=== PATIENT | female | born 1990 | race African-American/Black ===

== ENCOUNTER 2024-08-05 10:48 | Day surgery (SDC) | payer MEDICAID ==
[2024-08-05] MEDS ORDERED: hydrALAZINE 20 MG/ML VIAL SLOW IVP PRN (11:28)
[2024-08-05 13:09] LABS: Bilirubin Neg (Negative); Blood, Urine Negative (Negative); Glucose, Urine (Dipstick) Normal (Negative); Ketone, Urine Negative (Negative); Leukocyte Negative (Negative); Nitrite Negative (Negative); Protein, Urine (Dipstick) Negative (Neg-Trace); Specific Gravity, Urine 1.015 (1.005-1.030); Urobilinogen Normal mg/dL (Less than 2)
[2024-08-05 13:23] LABS: Clarity Cloudy (Clear)
[2024-08-05 13:24] LABS: Bacteria/HPF Rare-Few HPF (None Seen); CAUTI Indications for Culture Pregnancy; RBC/HPF None Seen HPF (0-3); WBC/HPF None Seen HPF (0-3)
[2024-08-05 13:25] LABS: Urine Culture Reflex No No; Urine Culture Reflex Yes Yes
[2024-08-05 13:27] LABS: HIV (1/2) Antibody/Antigen Non-Reactive (NonReactive); HIV 1/2 INDEX 0.15 S/CO (<1.00)
[2024-08-05 14:55] LABS: Syphilis Antibody INDETERMINATE (Nonreactive); Syphilis Antibody Index 10.76 S/CO (<1.00 Non-Reactive)
[2024-08-05 15:04] LABS: Syphilis Titer Non-Reactive Titer (Negative)
[2024-08-05 15:36] LABS: FFN Internal QC Analyzer PASS (PASS); FFN Internal QC Cassette PASS (PASS); Fetal Fibronectin Negative (Negative)
[2024-08-05 16:31] VITALS: BMI 27.7
[2024-08-06 05:14] LABS: Chlamydia by PCR, Vaginal Swab Not Detected (NotDetected); GC by PCR, Vaginal Swab Not Detected (NotDetected)
== END 2024-08-05 17:14 | disposition home or self-care (01) ==
LOC: CSHLD/OP 10:48
PROVIDERS: ATTEND Family Medicine
DX: O47.02 False labor before 37 completed weeks of gestation, second trimester (principal); O30.042 Twin pregnancy, dichorionic/diamniotic, second trimester; O99.343 Other mental disorders complicating pregnancy, third trimester; F32.A Depression, unspecified; F41.9 Anxiety disorder, unspecified; F43.10 Post-traumatic stress disorder, unspecified; O09.211 Supervision of pregnancy with history of pre-term labor, first trimester; O98.312 Other infections with a predominantly sexual mode of transmission complicating pregnancy, second trimester; O98.112 Syphilis complicating pregnancy, second trimester; O23.42 Unspecified infection of urinary tract in pregnancy, second trimester; Z79.899 Other long term (current) drug therapy; Z79.82 Long term (current) use of aspirin; Z88.0 Allergy status to penicillin; Z3A.26 26 weeks gestation of pregnancy
CPT/HCPCS: 76810; 76815; 76817; 81001; 82731; 86593; 86780; 87086; 87389; 87480; 87491; 87510; 87591; 87660; 99285

== ENCOUNTER 2024-08-10 21:50 | Observation (INO) | payer OTHER, MEDICAID ==
[2024-08-10 22:21] VITALS: BMI 28.7
[2024-08-10] MEDS ORDERED: hydrALAZINE 20 MG/ML VIAL SLOW IVP PRN ×2 (22:43→23:17)
[2024-08-10] MEDS ORDERED: Misoprostol 200 MCG TAB PR PRN (23:17)
[2024-08-10] MEDS ORDERED: Methylergonovine 0.2 MG/ML VIAL IM PRN (23:17)
[2024-08-10] MEDS ORDERED: Tranexamic Acid 1,000 MG/10 ML VIAL IVP PRN (23:17)
[2024-08-10] MEDS ORDERED: Carboprost 250 MCG/ML AMP IM PRN (23:17)
[2024-08-10] MEDS ORDERED: Promethazine HCl 25 MG/ML VIAL IM PRN (23:17)
[2024-08-10] MEDS: fentaNYL 50 mcg/mL 1 mL Vial ONE (23:22)
[2024-08-10] MEDS: Betamet Acet/Betamet Na Ph 30 MG/5 ML VIAL IM SCH (23:24)
[2024-08-10] MEDS ORDERED: fentaNYL 50 mcg/mL 1 mL Vial SLOW IVP SCH (23:30)
[2024-08-10] MEDS ORDERED: Magnesium Sulfate 2 GM in Sodium Chloride 0.9% 100 ML IVPB SCH (23:30)
[2024-08-10] MEDS ORDERED: Magnesium Sulfate 6 GM in Sodium Chloride 0.9% 250 ML 250 ML IVPB SCH (23:30)
[2024-08-10] MEDS ORDERED: Lactated Ringer's 1,000 ML IV SCH (23:30)
[2024-08-10] MEDS ORDERED: Oxytocin 30 units/NS 500 ML 500 ML IV SCH (23:30)
[2024-08-10] MEDS ORDERED: Ondansetron PF 4 MG/2 ML Vial IVP SCH (23:45)
[2024-08-11 00:32] LABS: Amphetamine Not Detected (NotDetected); Barbiturates Screen Not Detected (NotDetected); Benzodiazepine Screen Not Detected (NotDetected); Cocaine Metabolite Screen Not Detected (NotDetected); Methadone Not Detected (NotDetected); Methamphetamine Not Detected (NotDetected); Opiate Screen Not Detected (NotDetected); Oxycodone Screen Not Detected (NotDetected); Phencyclidine (PCP) Not Detected (NotDetected); THC/Cannabinoid Screen Not Detected (NotDetected); Tricyclic Screen Not Detected (NotDetected)
[2024-08-11 00:33] LABS: Bilirubin Neg (Negative); Blood, Urine Negative (Negative); Clarity Clear (Clear); Glucose, Urine (Dipstick) Normal (Negative); Ketone, Urine 150 mg/dL (Negative); Leukocyte Negative (Negative); Nitrite Negative (Negative); Protein, Urine (Dipstick) Negative (Neg-Trace); Urobilinogen Normal mg/dL (Less than 2)
[2024-08-11 00:44] LABS: Bacteria/HPF 1+ HPF (None Seen); CAUTI Indications for Culture Pregnancy; RBC/HPF 0-3 HPF (0-3); Squamous Epithelial 0-3 HPF (0-3); WBC/HPF 0-3 HPF (0-3)
[2024-08-11] MEDS: Magnesium Sulfate 20 gm/500 ml 20 GM/500 ML BAG IVPB SCH (00:44)
[2024-08-11] MEDS: Penicillin G Potassium 5 MILL.UNITS in Sodium Chloride 0.9% 100 ML IVPB SCH (00:44)
[2024-08-11 00:45] LABS: Urine Culture Reflex No No; Urine Culture Reflex Yes Yes
[2024-08-11 00:47] LABS: Hemoglobin 10.6 g/dL (12.0-15.5); Mean Corpuscular HGB CONC 34.2 g/dL (32.0-36.0); Mean Corpuscular Hemoglobin 30.6 pg (27.0-33.0); Mean Corpuscular Volume 89.6 fL (81.6-98.3); Mean Platelet Volume 9.5 fL (7.4-10.4); Platelet Count 197 10x3/uL (150-450); RBC Distribution Width 13.2 % (11.5-14.5); Red Blood Cell (RBC) Count 3.46 10x6/uL (3.90-5.03); White Blood Cell (WBC) Count 14.7 10x3/uL (3.5-10.5)
[2024-08-11] MEDS ORDERED: Morphine 4 MG/ML VIAL SLOW IVP SCH (01:00)
[2024-08-11 01:14] LABS: Syphilis Antibody INDETERMINATE (Nonreactive); Syphilis Titer Non-Reactive Titer (Negative)
[2024-08-11 01:18] LABS: HBsAg Index 0.25 S/CO (0-0.99); Hep B Surf Ag - L&D Non-Reactive S/CO (NonReactive)
[2024-08-11] MEDS: Morphine 4 MG/ML VIAL IM SCH (01:48)
[2024-08-11] MEDS: Promethazine HCl 25 MG/ML VIAL IM PRN (01:48)
[2024-08-11] MEDS: Penicillin G 2.5 MILL.units 2.5 MILL.UNITS in Premix 1 BAG IVPB SCH (03:48)
[2024-08-11] MEDS: Acetaminophen 500 MG TAB PO PRN (10:14)
[2024-08-11] MEDS: Ondansetron PF 4 MG/2 ML Vial IVP PRN (11:11)
[2024-08-11] MEDS: Famotidine 20 MG TAB PO SCH (13:04)
[2024-08-11] MEDS: Diphenoxylate HCl/Atropine Tablet PO PRN (15:09)
[2024-08-11] MEDS: Lactated Ringer's 1,000 ML IV SCH (16:00)
[2024-08-11 19:02] LABS: Chlamydia by PCR, Vaginal Swab Not Detected (NotDetected); GC by PCR, Vaginal Swab Not Detected (NotDetected)
[2024-08-11] MEDS: Betamet Acet/Betamet Na Ph 30 MG/5 ML VIAL ONE (19:20)
[2024-08-11] MEDS: Magnesium Sulfate 20 gm/500 ml 20 GM/500 ML BAG ONE (19:21)
[2024-08-11] MEDS ORDERED: Famotidine 40 MG/5 ML Oral Suspension PO SCH (21:00)
[2024-08-11] MEDS ORDERED: diphenhydrAMINE 50 MG CAP PO SCH (21:30)
[2024-08-12] MEDS: diphenhydrAMINE 50 MG CAP PO SCH (01:41)
[2024-08-12] MEDS: Bicillin LA 2.4 MILL.UNITS/4 ML SYRINGE IM SCH (02:25)
[2024-08-12 10:50] VITALS: BP 117/63; TEMP 98.4
== END 2024-08-12 15:20 | disposition home or self-care (01) ==
LOC: CSHLD/OP 21:50 → CSHLD 23:17 → CSHANTE 08-12 03:00
PROVIDERS: ADMIT Student in an Organized Health Care Education/Training Program; ATTEND Student in an Organized Health Care Education/Training Program
DX: O47.02 False labor before 37 completed weeks of gestation, second trimester (principal); O98.112 Syphilis complicating pregnancy, second trimester; A53.0 Latent syphilis, unspecified as early or late; O09.212 Supervision of pregnancy with history of pre-term labor, second trimester; O30.092 Twin pregnancy, unable to determine number of placenta and number of amniotic sacs, second trimester; O99.342 Other mental disorders complicating pregnancy, second trimester; F41.9 Anxiety disorder, unspecified; F32.A Depression, unspecified; F43.10 Post-traumatic stress disorder, unspecified; Z3A.27 27 weeks gestation of pregnancy
CPT/HCPCS: 36415; 36416; 76815; 76817; 80306; 81001; 85027; 86593; 86780; 86850; 86900; 86901; 87070; 87077; 87086; 87186; 87205; 87340; 87480; 87491; 87510; 87591; 87660; 96372; 96374; 96375; 96376; G0378; J0561; J0702; J2272; J2405; J2540; J2550; J3010; J3475; J7120

== ENCOUNTER 2024-08-18 09:01 | Day surgery (SDC) | payer MEDICAID ==
[2024-08-18 09:51] VITALS: BMI 28.7
[2024-08-18] MEDS ORDERED: hydrALAZINE 20 MG/ML VIAL SLOW IVP PRN (10:08)
[2024-08-18] MEDS: diphenhydrAMINE 50 MG/ML VIAL IVP SCH (10:38)
[2024-08-18] MEDS: Bicillin LA 2.4 MILL.UNITS/4 ML SYRINGE IM SCH (10:53)
== END 2024-08-18 12:44 | disposition home or self-care (01) ==
LOC: CSHLD/OP 09:01
PROVIDERS: ATTEND Family Medicine
DX: O47.03 False labor before 37 completed weeks of gestation, third trimester (principal); O30.003 Twin pregnancy, unspecified number of placenta and unspecified number of amniotic sacs, third trimester; O99.343 Other mental disorders complicating pregnancy, third trimester; F32.9 Major depressive disorder, single episode, unspecified; F41.9 Anxiety disorder, unspecified; F43.10 Post-traumatic stress disorder, unspecified; O98.113 Syphilis complicating pregnancy, third trimester; O23.43 Unspecified infection of urinary tract in pregnancy, third trimester; O09.43 Supervision of pregnancy with grand multiparity, third trimester; Z87.59 Personal history of other complications of pregnancy, childbirth and the puerperium; Z3A.28 28 weeks gestation of pregnancy; Z88.0 Allergy status to penicillin; Z88.1 Allergy status to other antibiotic agents; Z79.82 Long term (current) use of aspirin; Z79.899 Other long term (current) drug therapy
CPT/HCPCS: 96360; 96372; 96375; 99282; J0561; J1200

== ENCOUNTER 2024-08-25 09:07 | Day surgery (SDC) | payer MEDICAID ==
[2024-08-25 09:27] VITALS: BMI 28.7
[2024-08-25] MEDS: diphenhydrAMINE 25 MG CAP PO SCH (10:08)
[2024-08-25] MEDS: Bicillin LA 2.4 MILL.UNITS/4 ML SYRINGE IM SCH (10:38)
== END 2024-08-25 15:12 | disposition home or self-care (01) ==
LOC: CSHLD/OP 09:07
PROVIDERS: ATTEND Family Medicine
DX: O98.113 Syphilis complicating pregnancy, third trimester (principal); O30.043 Twin pregnancy, dichorionic/diamniotic, third trimester; O99.343 Other mental disorders complicating pregnancy, third trimester; F32.9 Major depressive disorder, single episode, unspecified; F43.10 Post-traumatic stress disorder, unspecified; F41.9 Anxiety disorder, unspecified; O23.43 Unspecified infection of urinary tract in pregnancy, third trimester; O26.43 Herpes gestationis, third trimester; O09.213 Supervision of pregnancy with history of pre-term labor, third trimester; O47.03 False labor before 37 completed weeks of gestation, third trimester; O99.313 Alcohol use complicating pregnancy, third trimester; F10.90 Alcohol use, unspecified, uncomplicated; O99.323 Drug use complicating pregnancy, third trimester; F12.90 Cannabis use, unspecified, uncomplicated; Z79.82 Long term (current) use of aspirin; Z79.899 Other long term (current) drug therapy; Z88.0 Allergy status to penicillin; Z88.1 Allergy status to other antibiotic agents; Z3A.29 29 weeks gestation of pregnancy
CPT/HCPCS: 96372; 99283; J0561

== ENCOUNTER 2024-09-17 15:15 | Inpatient (IN) | payer OTHER, MEDICAID ==
[2024-09-17 15:34] VITALS: BMI 29.8
[2024-09-17] MEDS ORDERED: hydrALAZINE 20 MG/ML VIAL SLOW IVP PRN (16:12)
[2024-09-17] MEDS: Betamet Acet/Betamet Na Ph 30 MG/5 ML VIAL IM SCH (17:05)
[2024-09-17 17:52] LABS: Bilirubin Neg (Negative); Blood, Urine Negative (Negative); Clarity Clear (Clear); Glucose, Urine (Dipstick) Normal (Negative); Ketone, Urine 15 mg/dL (Negative); Leukocyte Negative (Negative); Nitrite Negative (Negative); Protein, Urine (Dipstick) 15 mg/dl (Neg-Trace)
[2024-09-17] MEDS ORDERED: NIFEdipine XL 30 MG ER.TAB PO ONE (19:09)
[2024-09-17] MEDS ORDERED: Diphenoxylate HCl/Atropine Tablet PO PRN ×2 (19:12)
[2024-09-17] MEDS ORDERED: Methylergonovine 0.2 MG/ML VIAL IM PRN (19:12)
[2024-09-17] MEDS ORDERED: Acetaminophen 500 MG TAB PO PRN (19:12)
[2024-09-17] MEDS ORDERED: Promethazine HCl 25 MG/ML VIAL IM PRN ×2 (19:12→22:51)
[2024-09-17] MEDS ORDERED: Ondansetron PF 4 MG/2 ML Vial IVP PRN ×2 (19:12→22:51)
[2024-09-17] MEDS ORDERED: Misoprostol 200 MCG TAB PR PRN (19:12)
[2024-09-17] MEDS ORDERED: Carboprost 250 MCG/ML AMP IM PRN (19:12)
[2024-09-17] MEDS: NIFEdipine 10 MG CAP ONE (19:15)
[2024-09-17 19:29] LABS: Hematocrit 34.2 % (34.9-44.5); Hemoglobin 11.2 g/dL (12.0-15.5); Mean Corpuscular HGB CONC 32.7 g/dL (32.0-36.0); Mean Corpuscular Hemoglobin 28.6 pg (27.0-33.0); Mean Corpuscular Volume 87.2 fL (81.6-98.3); Mean Platelet Volume 10.3 fL (7.4-10.4); Platelet Count 271 10x3/uL (150-450); RBC Distribution Width 13.5 % (11.5-14.5); Red Blood Cell (RBC) Count 3.92 10x6/uL (3.90-5.03); White Blood Cell (WBC) Count 14.6 10x3/uL (3.5-10.5)
[2024-09-17] MEDS: NIFEdipine 10 MG CAP PO SCH ×2 (19:59→20:31)
[2024-09-17] MEDS ORDERED: Lidocaine 1% (PF) 30 ML VIAL SC PRN (20:00)
[2024-09-17] MEDS ORDERED: Ibuprofen 800 MG TAB PO PRN (20:00)
[2024-09-17 20:02] LABS: CAUTI Indications for Culture Pregnancy
[2024-09-17 20:03] LABS: Bacteria/HPF 1+ HPF (None Seen)
[2024-09-17 20:04] LABS: Urine Culture Reflex Yes Yes
[2024-09-17 20:06] LABS: HBsAg Index 0.22 S/CO (0-0.99); Hep B Surf Ag - L&D Non-Reactive S/CO (NonReactive)
[2024-09-17] MEDS: diphenhydrAMINE 25 MG CAP PO PRN (20:31)
[2024-09-17] MEDS: Penicillin G Potassium 5 MILL.UNITS in Sodium Chloride 0.9% 100 ML IVPB SCH (20:51)
[2024-09-17] MEDS: fentaNYL 50 mcg/mL 1 mL Vial SLOW IVP SCH (20:51)
[2024-09-17] MEDS ORDERED: Magnesium Sulfate 4 GM in Sodium Chloride 0.9% 250 ML 250 ML IVPB SCH (21:00)
[2024-09-17 21:03] LABS: Amphetamine Not Detected (NotDetected); Barbiturates Screen Not Detected (NotDetected); Benzodiazepine Screen Not Detected (NotDetected); Cocaine Metabolite Screen Not Detected (NotDetected); Methadone Not Detected (NotDetected); Methamphetamine Not Detected (NotDetected); Opiate Screen Not Detected (NotDetected); Oxycodone Screen Not Detected (NotDetected); Phencyclidine (PCP) Not Detected (NotDetected); THC/Cannabinoid Screen Not Detected (NotDetected); Tricyclic Screen Not Detected (NotDetected)
[2024-09-17] MEDS ORDERED: Calcium Gluc 4.6 MEQ/10 ML (100 MG/ML) SLOW IVP PRN (21:03)
[2024-09-17] MEDS ORDERED: Lorazepam 2 MG/ML VIAL SLOW IVP PRN (21:03)
[2024-09-17] MEDS: Magnesium Sulfate 20 gm/500 ml 20 GM/500 ML BAG IVPB SCH (21:24)
[2024-09-17 21:35] LABS: HIV (1/2) Antibody/Antigen Non-Reactive (NonReactive); HIV 1/2 INDEX 0.16 S/CO (<1.00)
[2024-09-17] MEDS: fentaNYL/Ropivacaine Epidural 100 ML ONE (22:43)
[2024-09-17 22:45] LABS: Syphilis Antibody Index 11.84 S/CO (<1.00 Non-Reactive)
[2024-09-17] MEDS ORDERED: ePHEDrine Sulfate 50 MG/10 ML VIAL SLOW IVP PRN (22:51)
[2024-09-17] MEDS ORDERED: Lactated Ringer's 500 ML IV PRN (22:51)
[2024-09-17] MEDS ORDERED: diphenhydrAMINE 50 MG/ML VIAL IVP PRN (22:51)
[2024-09-17] MEDS ORDERED: Naloxone HCl 0.4 mg/ml Vial IVP PRN ×2 (22:51)
[2024-09-17] MEDS ORDERED: Moisturizing Cream (Eucerin) 113 GM JAR TOP PRN (22:51)
[2024-09-17] MEDS ORDERED: Communication Order-Pharmacy FS SCH (23:00)
[2024-09-17] MEDS ORDERED: NIFEdipine 10 MG CAP PO PRN (23:00)
[2024-09-17] MEDS: Sertraline 100 MG TAB PO SCH (23:05)
[2024-09-17 23:51] LABS: Syphilis Antibody INDETERMINATE (Nonreactive); Syphilis Titer Non-Reactive Titer (Negative)
[2024-09-18] MEDS: Penicillin G 2.5 MILL.units 2.5 MILL.UNITS in Premix 1 BAG IVPB SCH (01:20)
[2024-09-18] MEDS: Lactated Ringer's 1,000 ML IV SCH (02:02)
[2024-09-18] MEDS ORDERED: Bupivacaine/Epinephrine 0.25% 30 ML VIAL ONE (08:00)
[2024-09-18] MEDS: Acetaminophen 500 MG TAB PO SCH (09:25)
[2024-09-18] MEDS: fentaNYL 2 mcg/Ropivacaine 0.2% Epidural 100 ML CADD EPIDURAL SCH (11:00)
[2024-09-18 17:54] LABS: #Basophils 0.02 10x3/uL (0.0-0.2); #Eosinophils 0.01 10x3/uL (0.0-0.5); #Monocytes 1.01 10x3/uL (0.0-1.1); #Neutrophils 14.47 10x3/uL (1.5-8.4); %Basophils 0.1 % (0.0-2.0); %Eosinophils 0.1 % (0.0-6.0); %Lymphocytes 9.3 % (18.0-47.0); %Monocytes 5.8 % (0.0-10.0); %Neutrophils 82.8 % (40.0-75.0); Hematocrit 30.9 % (34.9-44.5); Hemoglobin 10.1 g/dL (12.0-15.5); Mean Corpuscular HGB CONC 32.7 g/dL (32.0-36.0); Mean Corpuscular Hemoglobin 28.3 pg (27.0-33.0); Mean Corpuscular Volume 86.6 fL (81.6-98.3); Mean Platelet Volume 10.2 fL (7.4-10.4); Platelet Count 257 10x3/uL (150-450); RBC Distribution Width 13.5 % (11.5-14.5); Red Blood Cell (RBC) Count 3.57 10x6/uL (3.90-5.03); White Blood Cell (WBC) Count 17.5 10x3/uL (3.5-10.5)
[2024-09-18 18:01] LABS: ALT (SGPT) 9 U/L (8-55); AST (SGOT) 19 U/L (5-34); Albumin 2.4 g/dL (3.5-5.0); Alkaline Phosphatase 74 U/L (40-110); Anion Gap 15 mmol/L (10-20); BUN (Urea Nitrogen) 6 mg/dL (7.0-18.7); Bilirubin, Total 0.7 mg/dL (0.2-1.2); Calc. Creatinine Clearance 142 mL/min (70-130); Calcium 7.4 mg/dL (7.8-10.44); Carbon Dioxide 17 mmol/L (22-29); Chloride 104 mmol/L (98-107); Estimated GFR 107; Globulin 3.8 g/dL (2.4-3.5); Glucose 139 mg/dL (70-105); Protein, Total 6.2 g/dL (6.0-8.3); Sodium 132 mmol/L (136-145)
[2024-09-18 18:12] LABS: Creatinine, Urine 32.27 mg/dL (47-110); Protein, Urine Random Quant Less than 10 mg/dL (1-14)
[2024-09-18] MEDS: NIFEdipine 10 MG CAP PO PRN (20:12)
[2024-09-18] MEDS: Acetaminophen 325 MG TAB PO PRN (21:31)
[2024-09-18] MEDS: fentaNYL/Ropivacaine Epidural 100 ML ONE (23:03)
[2024-09-19] MEDS: Cyclobenzaprine 10 MG TAB PO SCH (00:14)
[2024-09-19] MEDS ORDERED: Bicitra 30 ML UDCUP PO PRN (06:00)
[2024-09-19] MEDS ORDERED: Azithromycin 500 MG in Sodium Chloride 0.9% 250 ML 250 ML IVPB SCH (06:00)
[2024-09-19] MEDS ORDERED: Famotidine/PF 20 mg/2ml Vial SLOW IVP PRN (06:00)
[2024-09-19] MEDS ORDERED: CEFAZOLIN 2 GM in Sodium Chloride 0.9% 100 ML IVPB SCH (06:00)
[2024-09-19] MEDS: fentaNYL/Ropivacaine Epidural 100 ML ONE (06:04)
[2024-09-19] MEDS ORDERED: diphenhydrAMINE 50 MG/ML VIAL IVP PRN ×2 (06:20→10:41)
[2024-09-19] MEDS ORDERED: ePHEDrine Sulfate 50 MG/10 ML VIAL SLOW IVP PRN (06:20)
[2024-09-19] MEDS ORDERED: Lactated Ringer's 500 ML IV PRN (06:20)
[2024-09-19] MEDS ORDERED: Naloxone HCl 0.4 mg/ml Vial IVP PRN ×4 (06:20→10:41)
[2024-09-19] MEDS ORDERED: Moisturizing Cream (Eucerin) 113 GM JAR TOP PRN ×2 (06:20→10:41)
[2024-09-19] MEDS ORDERED: Promethazine HCl 25 MG/ML VIAL IM PRN ×2 (06:20→10:41)
[2024-09-19] MEDS ORDERED: Ondansetron PF 4 MG/2 ML Vial IVP PRN ×4 (06:20→10:41)
[2024-09-19] MEDS ORDERED: Acetaminophen 325 MG TAB PO PRN ×2 (06:20→08:57)
[2024-09-19] MEDS ORDERED: Communication Order-Pharmacy FS SCH ×2 (06:30→10:45)
[2024-09-19] MEDS ORDERED: fentaNYL 2 mcg/Ropivacaine 0.2% Epidural 100 ML CADD EPIDURAL SCH (06:30)
[2024-09-19 08:39] LABS: Analyzer IN Cardio CS NICU; RapidComm Collect By OR NURSE
[2024-09-19 08:40] LABS: Analyzer IN Cardio CS NICU; RapidComm Collect By OR NURSE
[2024-09-19 08:49] LABS: Analyzer IN Cardio CS NICU; RapidComm Collect By OR NURES; pH (Cord, venous) 7.277 (7.250-7.350)
[2024-09-19] MEDS ORDERED: Lanolin Ointment 7 GM TUBE TOP PRN (08:57)
[2024-09-19] MEDS ORDERED: Misoprostol 200 MCG TAB PR PRN (08:57)
[2024-09-19] MEDS ORDERED: hydrALAZINE 20 MG/ML VIAL SLOW IVP PRN (08:57)
[2024-09-19] MEDS ORDERED: Bisacodyl 10 MG SUPP PR PRN (08:57)
[2024-09-19] MEDS ORDERED: Boostrix 0.5 ML (Tdap) VIAL (>/=7 yrs of age) IM ONE (08:57)
[2024-09-19] MEDS ORDERED: Methylergonovine 0.2 MG/ML VIAL IM PRN (08:57)
[2024-09-19] MEDS ORDERED: Oxytocin 30 units/NS 500 ML 500 ML IV SCH (09:00)
[2024-09-19] MEDS: Tranexamic Acid 1,000 MG/10 ML VIAL IVP PRN (09:16)
[2024-09-19 10:01] LABS: D-Dimer Test 5.47 mcg/mL (0.19-0.50); PTT 23.6 sec (22.0-33.0); Prothrombin Time 10.4 sec (9.5-12.1)
[2024-09-19] MEDS ORDERED: fentaNYL 50 mcg/mL 1 mL Vial SLOW IVP PRN (10:41)
[2024-09-19] MEDS ORDERED: Naloxone HCl 0.4 mg/ml Vial IV PRN (10:41)
[2024-09-19] MEDS ORDERED: Meperidine HCl/PF 25 MG (1 mL) VIAL SLOW IVP PRN (10:41)
[2024-09-19] MEDS ORDERED: Ketorolac Tromethamine 30 MG (1 mL) VIAL IVP SCH (10:45)
[2024-09-19] MEDS: Oxytocin 30 units/NS 500 ML 500 ML IV SCH (10:55)
[2024-09-19 14:40] LABS: Group B Streptococcus by PCR Not Detected (NotDetected)
[2024-09-19] MEDS: Dexmedetomidine 200 MCG/2 ML VIAL ONE ×2 (16:12→16:14)
[2024-09-19] MEDS: PHENYLEPHRINE-NS 100 MCG/ML 10 ML SYRINGE ONE (16:12)
[2024-09-19] MEDS: Ketorolac Tromethamine 30 MG (1 mL) VIAL ONE (16:12)
[2024-09-19] MEDS: fentaNYL 50 mcg/mL 1 mL Vial ONE (16:12)
[2024-09-19] MEDS: Morphine PF 10 MG/10 ML VIAL ONE ×2 (16:12→16:14)
[2024-09-19] MEDS: Prenatal Vitamin 1 TAB PO SCH (16:13)
[2024-09-19] MEDS: Dexamethasone 10 MG/ML VIAL ONE ×2 (16:13→16:14)
[2024-09-19] MEDS: Docusate 100 MG CAP PO SCH (16:13)
[2024-09-19] MEDS: Ferrous Sulfate 325 MG TAB PO SCH (16:13)
[2024-09-19] MEDS: Ketorolac Tromethamine 30 MG (1 mL) VIAL IVP SCH (16:17)
[2024-09-19] MEDS: fentaNYL 50 mcg/mL 1 mL Vial SLOW IVP SCH (16:25)
[2024-09-19] MEDS: Magnesium Sulfate 20 gm/500 ml 4 GM/100 ML BAG IVPB SCH (16:26)
[2024-09-19] MEDS: Magnesium Sulfate 20 gm/500 ml 20 GM/500 ML BAG ONE (16:26)
[2024-09-19] MEDS: NIFEdipine 10 MG CAP PO SCH (16:26)
[2024-09-19] MEDS: Lactated Ringer's 1,000 ML IV SCH (16:26)
[2024-09-20 05:56] LABS: Hematocrit 23.4 % (34.9-44.5); Hemoglobin 7.8 g/dL (12.0-15.5); Mean Corpuscular HGB CONC 33.3 g/dL (32.0-36.0); Mean Corpuscular Hemoglobin 29.7 pg (27.0-33.0); Mean Platelet Volume 9.9 fL (7.4-10.4); Platelet Count 201 10x3/uL (150-450); RBC Distribution Width 13.7 % (11.5-14.5); Red Blood Cell (RBC) Count 2.63 10x6/uL (3.90-5.03); White Blood Cell (WBC) Count 16.9 10x3/uL (3.5-10.5)
[2024-09-20] MEDS: Lactated Ringer's 1,000 ML IV SCH (06:11)
[2024-09-20] MEDS: Sodium Ferric Gluconate 250 MG in Sodium Chloride 0.9% 250 ML 250 ML IVPB SCH (09:13)
[2024-09-20] MEDS: HYDROcodone/Acetaminophen 5/325 mg Tablet PO PRN ×2 (09:24→15:35)
[2024-09-20] MEDS: Simethicone Chewable 80 MG TAB PO PRN (21:17)
[2024-09-20] MEDS: Ibuprofen 800 MG TAB PO SCH (21:17)
[2024-09-21 08:37] VITALS: BP 118/72; TEMP 98.5
[2024-09-21] MEDS: Furosemide 40 MG (4 mL) VIAL SLOW IVP SCH (12:13)
== END 2024-09-21 14:40 | disposition home or self-care (01) | DRG 783 ==
LOC: CSHLD/OP 15:15 → INTOOBSV 20:24 → CSHLD 20:24 → OBSVTOIN 09-18 13:52 → CSHPP 09-19 12:03
PROVIDERS: ADMIT Family Medicine; ATTEND Family Medicine
PROC: 10D00Z1 Extraction of Products of Conception, Low, Open Approach (ICD-10-PCS; principal; 2024-09-19)
PROC: 0UT70ZZ Resection of Bilateral Fallopian Tubes, Open Approach (ICD-10-PCS; 2024-09-19)
PROC: 4A033R1 Measurement of Arterial Saturation, Peripheral, Percutaneous Approach (ICD-10-PCS; 2024-09-19)
DX: O30.043 Twin pregnancy, dichorionic/diamniotic, third trimester (principal); O60.14X1 Preterm labor third trimester with preterm delivery third trimester, fetus 1; O60.14X2 Preterm labor third trimester with preterm delivery third trimester, fetus 2; D62 Acute posthemorrhagic anemia; O98.52 Other viral diseases complicating childbirth; O72.1 Other immediate postpartum hemorrhage; B00.9 Herpesviral infection, unspecified; Z3A.32 32 weeks gestation of pregnancy; Z37.0 Single live birth; O76 Abnormality in fetal heart rate and rhythm complicating labor and delivery; O32.2XX2 Maternal care for transverse and oblique lie, fetus 2; O13.4 Gestational [pregnancy-induced] hypertension without significant proteinuria, complicating childbirth; Z30.2 Encounter for sterilization; O99.03 Anemia complicating the puerperium
CPT/HCPCS: 36415; 51702; 76817; 76819; 80053; 80306; 81001; 82570; 82805; 84156; 85025; 85027; 85049; 85300; 85362; 85384; 85610; 85730; 86593; 86780; 86850; 86900; 86901; 87086; 87340; 87389; 87653; 88302; 88307; 99285; J0702; J1100; J1885; J1940; J2274; J2540; J2590; J2916; J3010; J3475; J7050; J7120